=== PATIENT | female | born 1980 | race Caucasian/White ===

== ENCOUNTER 2017-03-29 09:23 | Emergency (ER) | payer MEDICAID ==
[~2017-03-29 09:23] MED LIST: APAP/HYDROCODON1 T13 PO; COLACE100 MG PO; IBUPROF PO; LEVAQUIN750 MG PO; LIO10 PO; OYSTER SHELL PO; PRI20; ZESTRIL20
[2017-03-29 11:08] LABS: BASOPHIL % 0.3 % (0-2)
[2017-03-29 11:20] LABS: PLATELET COUNT 527 x10^3mcL (130-400); RED CELL DISTRIBUTION WIDTH 15.5 % (11.5-14.5)
[2017-03-29 11:31] LABS: CALCIUM 9.5 mg/dL (8.5-10.1); CARBON DIOXIDE 23.4 mmol/L (21-32); CHLORIDE SERUM 101 mmol/L (98-107); CREATININE SERUM 0.8 mg/dL (0.6-1.0); GFR1 > 60 mL/min; GLUCOSE SERUM 120 mg/dL (74-106); SODIUM SERUM 137 mmol/L (136-145)
[2017-03-29 11:34] LABS: rbc morphology (normal/abnorm) ABNORMAL (NORMAL)
[2017-03-29 11:35] LABS: ALBUMIN 4.2 g/dL (3.4-5.0); ALKALINE PHOSPHATASE 79 U/L (46-116); ALT/SGPT 46 U/L (14-59); AST/SGOT 29 U/L (15-37); BILIRUBIN TOTAL 0.47 mg/dL (0.20-1.00); CHOLESTEROL 189 mg/dL (<200); LIPASE 93 IU/L (73-393); TRIGLYCERIDES 105 mg/dL (<150)
[2017-03-29 11:37] LABS: HDL CHOLESTEROL 62 mg/dL (40-60)
[2017-03-29 11:42] LABS: T3 TOTAL 1.27 ng/mL
[2017-03-29 11:47] LABS: FREE T4 0.88 ng/dL (0.76-1.46); FREE THYROXINE INDEX 2.4 ug/dL (1.4-4.5); T4(THYROXINE) 8.6 ug/dL (4.7-13.3)
[2017-03-29 14:24] VITALS: BP 106/59
== END 2017-03-29 14:24 | disposition home or self-care (01) ==
LOC: ED 09:23
PROVIDERS: Specialist
DX: A08.4 Viral intestinal infection, unspecified (principal); R51 Headache; R07.89 Other chest pain
CPT/HCPCS: 83880; 84439; J1885; J2405; J3411; J3475; J3490; J7030; Q0092

== ENCOUNTER 2018-01-22 11:23 | Emergency (ER) | payer MEDICAID ==
[~2018-01-22] VITALS: Ht 157.5 cm; Wt 88.5 kg
[2018-01-22 11:40] VITALS: Ht 157.5 cm; Wt 88.5 kg
[2018-01-22 13:48] VITALS: BP 111/68
== END 2018-01-22 14:56 | disposition home or self-care (01) ==
LOC: ED 11:23
DX: S39.012A Strain of muscle, fascia and tendon of lower back, initial encounter (principal); R06.00 Dyspnea, unspecified; R30.9 Painful micturition, unspecified; X58.XXXA Exposure to other specified factors, initial encounter; Y93.89 Activity, other specified; Y92.89 Other specified places as the place of occurrence of the external cause; Y99.8 Other external cause status
CPT/HCPCS: J1885